=== PATIENT | female | born 1995 | race Caucasian/White ===

== ENCOUNTER 2023-07-07 11:20 | Emergency (ER) | payer MEDICAID, SELFPAY ==
[2023-07-07] MEDS ORDERED: Ondansetron PF 4 MG/2 ML Vial ONE (12:19)
[2023-07-07 12:34] LABS: #Lymphocytes 2.7 thou/uL (1.20-3.40); #Monocytes 1.6 thou/uL (0.11-0.59); #Neutrophils 14.3 thou/uL (1.40-6.50); %Basophils 0.3 % (0.0-1.0); %Eosinophils 0.1 % (0.0-10.0); %Lymphocytes 14.5 % (21.0-51.0); %Monocytes 8.5 % (0.0-10.0); %Neutrophils 76.8 % (42.0-75.0); Hematocrit 46.4 % (36.0-47.0); Mean Corpuscular HGB CONC 34.5 g/dL (32.0-36.0); Mean Corpuscular Hemoglobin 29.6 pg (27.0-31.0); Mean Corpuscular Volume 85.5 fl (78.0-98.0); Mean Platelet Volume 8.7 fL (7.4-10.4); Platelet Count 364 10x3/uL (130-400); RBC Distribution Width 9.9 % (11.5-14.5); Red Blood Cell (RBC) Count 5.42 mill/uL (4.20-5.40); White Blood Cell (WBC) Count 18.6 10x3/uL (4.8-10.8)
[2023-07-07 12:52] LABS: ALT (SGPT) 104 U/L (8-55); AST (SGOT) 87 U/L (5-34); Albumin 5.4 g/dL (3.5-5.0); Alkaline Phosphatase 64 U/L (40-110); Anion Gap 24 mmol/L (10-20); BUN (Urea Nitrogen) 56 mg/dL (7.0-18.7); Bilirubin, Total 2.1 mg/dL (0.2-1.2); Calc. Creatinine Clearance 0 mL/min (70-130); Calcium 11.1 mg/dL (7.8-10.44); Carbon Dioxide 34 mmol/L (22-29); Chloride 77 mmol/L (98-107); Estimated GFR 42; Globulin 4.7 g/dL (2.4-3.5); Glucose 127 mg/dL (70-105); Lipase 7 U/L (8-78); Protein, Total 10.1 g/dL (6.0-8.3); Sodium 133 mmol/L (136-145)
[2023-07-07] MEDS ORDERED: Potassium Chloride 20 MEQ TAB ONE (12:55)
[2023-07-07] MEDS ORDERED: Potassium Chloride 20 MEQ/100 ML PREMIX BAG ONE (13:26)
[2023-07-07 14:59] LABS: Bilirubin Small (Negative); Blood, Urine Trace (Negative); Clarity Cloudy (Clear); Glucose, Urine (Dipstick) Negative (Negative); Ketone, Urine 40 mg/dL (Negative); Leukocyte Negative (Negative); Nitrite Negative (Negative); Protein, Urine (Dipstick) > or equal to 300 mg/dL (Neg-Trace); Specific Gravity, Urine 1.015 (1.005-1.030); pH, Urine 7.5 (5.0-9.0)
[2023-07-07 15:08] LABS: Bacteria/HPF 3+ HPF (None Seen); CAUTI Indications for Culture Pregnancy; Mucous/LPF 1+ LPF (<2+); RBC/HPF 0-3 HPF (0-3)
[2023-07-07 15:09] LABS: Urine Culture Reflex Yes Yes
[2023-07-07] MEDS ORDERED: cefTRIAXone (ROCEPHIN) 1 GM VIAL ONE (15:38)
[2023-07-07] MEDS ORDERED: Sodium Chloride 0.9% 100 ML ONE (15:38)
[2023-07-07 16:12] LABS: Lactic Acid 2.9 mmol/L (0.5-2.2)
[2023-07-07 22:55] LABS: Amphetamine Not Detected (NotDetected); Barbiturates Screen Not Detected (NotDetected); Benzodiazepine Screen Not Detected (NotDetected); Cocaine Metabolite Screen Not Detected (NotDetected); Methadone Not Detected (NotDetected); Methamphetamine Not Detected (NotDetected); Opiate Screen Not Detected (NotDetected); Oxycodone Screen Not Detected (NotDetected); Phencyclidine (PCP) Not Detected (NotDetected); THC/Cannabinoid Screen Detected (NotDetected); Tricyclic Screen Not Detected (NotDetected)
== END 2023-07-07 17:19 | disposition short-term general hospital (02) ==
LOC: BURERS 11:20
DX: O21.1 Hyperemesis gravidarum with metabolic disturbance (principal); O99.281 Endocrine, nutritional and metabolic diseases complicating pregnancy, first trimester; E87.6 Hypokalemia; O23.41 Unspecified infection of urinary tract in pregnancy, first trimester; N39.0 Urinary tract infection, site not specified; O99.331 Smoking (tobacco) complicating pregnancy, first trimester; F17.290 Nicotine dependence, other tobacco product, uncomplicated; Z3A.09 9 weeks gestation of pregnancy
CPT/HCPCS: 80053; 80306; 81001; 83605; 83690; 85025; 87086; 93005; 96361; 96365; 96366; 96368; 96375; J0696; J2405; J3480; J3490

== ENCOUNTER 2023-09-08 11:08 | Emergency (ER) | payer MEDICAID, OTHER ==
[2023-09-08] MEDS ORDERED: Ondansetron ODT 4 MG TAB ONE (11:51)
[2023-09-08] MEDS ORDERED: Acetaminophen 500 MG TAB ONE (11:51)
[2023-09-08 12:14] LABS: SARS-CoV-2 NAA Rapid Test Not Detected (NotDetected)
== END 2023-09-08 12:27 | disposition home or self-care (01) ==
LOC: BURERS 11:08
DX: B34.9 Viral infection, unspecified (principal); F17.290 Nicotine dependence, other tobacco product, uncomplicated
CPT/HCPCS: 87804; 99284; Q0162; U0002